=== PATIENT | female | born 1950 | race Caucasian/White ===

== ENCOUNTER 2021-12-05 23:16 | Observation (INO) | payer MEDICARE ==
[2021-12-05] MEDS ORDERED: Pantoprazole 40 MG VIAL ONE (23:52)
[2021-12-06 00:04] LABS: #Eosinphils 0.1 thou/uL (0.0-0.7); #Lymphocytes 1.1 thou/uL (1.20-3.40); #Monocytes 0.7 thou/uL (0.11-0.59); #Neutrophils 6.8 thou/uL (1.40-6.50); %Basophils 0.3 % (0.0-1.0); %Eosinophils 0.6 % (0.0-10.0); %Lymphocytes 12.3 % (21.0-51.0); %Monocytes 7.7 % (0.0-10.0); %Neutrophils 79.1 % (42.0-75.0); Mean Platelet Volume 7.6 fL (7.4-10.4); Platelet Count 184 thou/uL (130-400); RBC Distribution Width 13.3 % (11.5-14.5); Red Blood Cell (RBC) Count 3.24 mill/uL (4.20-5.40); White Blood Cell (WBC) Count 8.6 thou/uL (4.8-10.8)
[2021-12-06 00:11] LABS: PTT 33.1 sec (22.9-36.1)
[2021-12-06 00:27] LABS: ALT (SGPT) 20 U/L (8-55); AST (SGOT) 56 U/L (5-34); Albumin 3.4 g/dL (3.4-4.8); Alkaline Phosphatase 79 U/L (40-110); Anion Gap 11 mmol/L (10-20); BUN (Urea Nitrogen) 13 mg/dL (9.8-20.1); Bilirubin, Total 0.5 mg/dL (0.2-1.2); Calc. Creatinine Clearance 0 mL/min (70-130); Calcium 8.1 mg/dL (7.8-10.44); Carbon Dioxide 23 mmol/L (23-31); Chloride 101 mmol/L (98-107); Estimated GFR 75; Globulin 2.1 g/dL (2.4-3.5); Glucose 146 mg/dL (83-110); Potassium 3.4 mmol/L (3.5-5.1); Protein, Total 5.5 g/dL (5.8-8.1); Sodium 132 mmol/L (136-145)
[2021-12-06 07:12] LABS: SARS-CoV-2 NAA Rapid Test Not Detected (NotDetected)
[2021-12-06] MEDS ORDERED: Ondansetron PF 4 MG/2 ML Vial IVP PRN (08:00)
[2021-12-06] MEDS ORDERED: Sodium Chloride 0.9% 1,000 ML IV SCH (08:00)
[2021-12-06] MEDS ORDERED: Ondansetron ODT 4 MG TAB PO PRN (08:00)
[2021-12-06] MEDS ORDERED: HYDROcodone/Acetaminophen 5/325 mg Tablet PO PRN ×2 (08:00)
[2021-12-06] MEDS ORDERED: Pantoprazole 40 MG VIAL ONE (08:20)
[2021-12-06] MEDS ORDERED: ALPRAZolam 0.5 MG TAB PO PRN (08:27)
[2021-12-06 08:45] LABS: #Basophils 0.1 thou/uL (0.0-0.2); #Eosinphils 0.1 thou/uL (0.0-0.7); #Lymphocytes 1.4 thou/uL (1.20-3.40); #Monocytes 0.9 thou/uL (0.11-0.59); #Neutrophils 6.5 thou/uL (1.40-6.50); %Basophils 0.6 % (0.0-1.0); %Eosinophils 0.8 % (0.0-10.0); %Lymphocytes 15.7 % (21.0-51.0); %Monocytes 10.1 % (0.0-10.0); %Neutrophils 72.8 % (42.0-75.0); Hemoglobin 10.3 g/dL (12.0-16.0); Mean Corpuscular HGB CONC 33.1 g/dL (32.0-36.0); Mean Corpuscular Hemoglobin 31.5 pg (27.0-31.0); Mean Corpuscular Volume 95.1 fL (78.0-98.0); Mean Platelet Volume 7.8 fL (7.4-10.4); Platelet Count 189 thou/uL (130-400); RBC Distribution Width 13.2 % (11.5-14.5); Red Blood Cell (RBC) Count 3.27 mill/uL (4.20-5.40)
[2021-12-06] MEDS ORDERED: Pantoprazole 40 MG VIAL IVP SCH (09:00)
[2021-12-06] MEDS ORDERED: Citalopram 20 MG TAB PO SCH (09:00)
[2021-12-06] MEDS ORDERED: Loratadine 10 MG TAB PO SCH (09:00)
[2021-12-06 09:04] LABS: Anion Gap 8 mmol/L (10-20); BUN (Urea Nitrogen) 14 mg/dL (9.8-20.1); Calc. Creatinine Clearance 0 mL/min (70-130); Calcium 8.5 mg/dL (7.8-10.44); Carbon Dioxide 27 mmol/L (23-31); Chloride 101 mmol/L (98-107); Estimated GFR 80; Glucose 113 mg/dL (83-110); Potassium 3.9 mmol/L (3.5-5.1); Sodium 132 mmol/L (136-145)
[2021-12-06] MEDS ORDERED: HYDROcodone/Acetaminophen 5/325 mg Tablet ONE ×2 (10:31→14:51)
[2021-12-06 16:13] VITALS: BP 137/62; TEMP 98.4
[2021-12-06] MEDS ORDERED: Montelukast Sodium 10 mg Tablet PO SCH (21:00)
== END 2021-12-06 16:46 | disposition home or self-care (01) ==
LOC: ERS 23:16 → ERHOLD 12-06 02:04
PROVIDERS: ADMIT Student in an Organized Health Care Education/Training Program; ATTEND Internal Medicine
DX: R10.10 Upper abdominal pain, unspecified (principal); R11.2 Nausea with vomiting, unspecified; E78.5 Hyperlipidemia, unspecified; D64.9 Anemia, unspecified; J45.909 Unspecified asthma, uncomplicated; Z20.822 Contact with and (suspected) exposure to COVID-19; Z88.5 Allergy status to narcotic agent; Z96.641 Presence of right artificial hip joint
CPT/HCPCS: 71045; 80048; 80053; 84484; 85025 ×2; 85610; 85730; 93005; 96376; G0378; U0002; 36415; 96374; C9113; J7050

== ENCOUNTER 2023-04-24 12:55 | Outpatient (CLI) | payer MEDICARE | END 2023-04-24 12:56 | disposition home or self-care (01) | LOC: SCSMRI 12:55 | PROVIDERS: ATTEND Orthopaedic Surgery | DX: M24.9 Joint derangement, unspecified (principal); S43.431A Superior glenoid labrum lesion of right shoulder, initial encounter; S43.491A Other sprain of right shoulder joint, initial encounter; M75.51 Bursitis of right shoulder; M19.011 Primary osteoarthritis, right shoulder ==

== ENCOUNTER 2023-09-04 15:03 | Observation (INO) | payer MEDICARE ==
[2023-09-04] MEDS ORDERED: hydrALAZINE 20 MG/ML VIAL SLOW IVP PRN (17:15)
[2023-09-04] MEDS ORDERED: Ondansetron ODT 4 MG TAB PO PRN (17:16)
[2023-09-04] MEDS ORDERED: Acetaminophen 325 MG TAB PO PRN (17:16)
[2023-09-04] MEDS ORDERED: Ondansetron PF 4 MG/2 ML Vial IVP PRN (17:16)
[2023-09-04] MEDS ORDERED: NIFEdipine XL 60 MG ER.TAB PO SCH (17:30)
[2023-09-04 17:54] LABS: #Basophils 0.05 10x3/uL (0.0-0.2); %Basophils 0.7 % (0.0-1.0); %Eosinophils 1.6 % (0.0-10.0); %Lymphocytes 29.6 % (21.0-51.0); %Monocytes 8.4 % (0.0-10.0); %Neutrophils 59.3 % (42.0-75.0); Hematocrit 33.7 % (36.0-47.0); Hemoglobin 11.2 g/dL (12.0-16.0); Mean Corpuscular HGB CONC 33.2 g/dL (32.0-36.0); Mean Corpuscular Hemoglobin 29.8 pg (27.0-31.0); Mean Corpuscular Volume 89.6 fL (78.0-98.0); Mean Platelet Volume 10.1 fL (7.4-10.4); Platelet Count 241 10x3/uL (130-400); RBC Distribution Width 13.3 % (11.5-14.5); Red Blood Cell (RBC) Count 3.76 mill/uL (4.20-5.40)
[2023-09-04] MEDS ORDERED: Nitroglycerin 0.4 MG TAB (25 Tab Bottle) SL PRN (18:10)
[2023-09-04 18:13] LABS: ALT (SGPT) 18 U/L (8-55); AST (SGOT) 27 U/L (5-34); Albumin 3.5 g/dL (3.4-4.8); Alkaline Phosphatase 80 U/L (40-110); Anion Gap 11 mmol/L (10-20); BUN (Urea Nitrogen) 7 mg/dL (9.8-20.1); Bilirubin, Total 0.3 mg/dL (0.2-1.2); Calc. Creatinine Clearance 0 mL/min (70-130); Carbon Dioxide 23 mmol/L (23-31); Chloride 105 mmol/L (98-107); Estimated GFR 68; Globulin 3.1 g/dL (2.4-3.5); Glucose 100 mg/dL (83-110); Potassium 3.4 mmol/L (3.5-5.1); Protein, Total 6.6 g/dL (5.8-8.1); Sodium 136 mmol/L (136-145)
[2023-09-04 18:17] LABS: Troponin I Less than 0.010 ng/mL (< 0.028)
[2023-09-04] MEDS: Acetaminophen 500 MG TAB PO SCH (18:39)
[2023-09-04] MEDS: Potassium Chloride 20 MEQ TAB PO SCH (20:37)
[2023-09-04] MEDS ORDERED: cloNIDine 0.1 MG TAB PO PRN (21:22)
[2023-09-04] MEDS: Ketorolac Tromethamine 30 MG (1 mL) VIAL IVP SCH (21:45)
[2023-09-04] MEDS: Promethazine HCl 12.5 MG in Sodium Chloride 0.9% 50 ML IVPB SCH (21:46)
[2023-09-05] MEDS: ALPRAZolam 0.5 MG TAB PO SCH (00:49)
[2023-09-05] MEDS: Zolpidem Tartrate 5 MG TAB PO SCH (00:52)
[2023-09-05] MEDS ORDERED: Albuterol 2.5 MG (3 mL) NEB EZPAP PRN (03:54)
[2023-09-05 05:27] LABS: Cardiac Risk 3.7 (Less than 4.5); Cholesterol 228 mg/dl (< 200 Desired); HDL Cholesterol 61 mg/dL (>60 Neg Risk); LDL Cholesterol, Calculated 145 mg/dL; Magnesium 1.7 mg/dL (1.6-2.6); Triglycerides 110 mg/dL (Less than 150)
[2023-09-05] MEDS: Loratadine 10 MG TAB PO SCH (08:48)
[2023-09-05] MEDS: NIFEdipine XL 30 MG ER.TAB PO SCH (08:49)
[2023-09-05] MEDS: Pantoprazole DR 40 MG TAB PO SCH (08:51)
[2023-09-05] MEDS ORDERED: NIFEdipine XL 60 MG ER.TAB PO SCH (09:00)
[2023-09-05] MEDS ORDERED: Aspirin Chewable 81 MG TAB PO SCH (09:00)
[2023-09-05] MEDS ORDERED: Regadenoson 0.4 MG/5 ML SYRINGE ONE (11:48)
[2023-09-05] MEDS: Spironolactone 25 MG TAB PO SCH (15:21)
[2023-09-05 16:02] VITALS: BP 138/77; TEMP 96.9
[2023-09-05] MEDS ORDERED: Zolpidem Tartrate 5 MG TAB PO SCH (21:00)
[2023-09-05] MEDS ORDERED: ALPRAZolam 0.5 MG TAB PO SCH (21:00)
[2023-09-05] MEDS ORDERED: Citalopram 20 MG TAB PO SCH (21:00)
[2023-09-05] MEDS ORDERED: Montelukast Sodium 10 mg Tablet PO SCH (21:00)
[2023-09-05] MEDS ORDERED: PREMARIN 0.45 MG PO SCH ×2 (21:00)
[2023-09-05] MEDS ORDERED: Rosuvastatin 20 MG TAB PO SCH (21:00)
[2023-09-06] MEDS ORDERED: Spironolactone 25 MG TAB PO SCH (08:00)
== END 2023-09-05 18:30 | disposition home or self-care (01) ==
LOC: 2SW 16:03
PROVIDERS: ADMIT Student in an Organized Health Care Education/Training Program; ATTEND Internal Medicine
DX: R07.89 Other chest pain (principal); R06.00 Dyspnea, unspecified; I10 Essential (primary) hypertension; J45.909 Unspecified asthma, uncomplicated; D46.9 Myelodysplastic syndrome, unspecified; F41.9 Anxiety disorder, unspecified; Z88.5 Allergy status to narcotic agent; Z88.8 Allergy status to other drugs, medicaments and biological substances; Z79.899 Other long term (current) drug therapy
CPT/HCPCS: 78452; 80053; 80061; 83735; 83880; 84484; 85025; 93005; 93017; A9502; J1885; J2550; J2785 ×2; 36415; 93010; 96374; 96375; G0378

== ENCOUNTER 2023-12-31 12:43 | Outpatient (CLI) | payer MEDICARE | END 2023-12-31 12:44 | disposition home or self-care (01) | LOC: SCSRAD 12:43 | PROVIDERS: ATTEND Family Medicine | DX: M54.6 Pain in thoracic spine (principal) | CPT/HCPCS: 72072 ==

== ENCOUNTER 2024-04-01 13:02 | Outpatient (CLI) | payer MEDICARE | END 2024-04-01 13:03 | disposition home or self-care (01) | LOC: SCSRAD 13:02 | PROVIDERS: ATTEND Nurse Practitioner Family | DX: M79.671 Pain in right foot (principal); S92.514A Nondisplaced fracture of proximal phalanx of right lesser toe(s), initial encounter for closed fracture ==